=== PATIENT | male | born 1970 | race Caucasian/White ===

== ENCOUNTER → 2023-03-28 | Day surgery (SDC) | payer OTHER ==
[~2023-03-28] MED LIST: Lactated Ringers 1,000 ML IV SCH; Propofol 200 MG/20 ML SDV ONE
== END | disposition home or self-care (01) ==
LOC: JP.SDS 06:59
PROVIDERS: ATTEND Student in an Organized Health Care Education/Training Program
DX: Z12.11 Encounter for screening for malignant neoplasm of colon (principal); K57.30 Diverticulosis of large intestine without perforation or abscess without bleeding
CPT/HCPCS: 45378; J2704; J7120